=== PATIENT | female | born 1980 ===

== ENCOUNTER 2024-09-15 17:28 | Inpatient (IN) | payer SELFPAY ==
--- OUTSIDE RECORDS SUMMARY | 2024-09-15 17:38 | XMS_ITS | Clinical Summary ---
Author Organization [facility] it Address [address] [place] [address] Care Team Providers Care Movie Extra Name Role Phone Agustin Navarro MD Primary Care Provider Medical History Medical History Date Comments Catatonia schizophrenia (CMS /HCC V24, CMS/HCC V28) DX:Catatonia schizophrenia ( HCC) Family History Medical History Relation Name Comments No Known Problems Brother Hypertension Father Throat cancer Maternal Grandfather Coronary artery disease Mother sten t Hypertension Mother No Known Problems Sister Relation Name Status Comments Brother Alive Father Alive Maternal Grandfather Maternal Grandmother Mother Alive Paternal Grandfather Paternal Grandmother Sister Alive Social History Tobacco Use Types Packs/Day Years Used Date Smoking Tobacco: Never Smokeless Tobacco: Never Alcohol Use Standard Drinks/Week Comments No 0 (1 standard drink = 0.6 oz pur e alcohol) Comments Unknown Sex and Gender Information Value Date Recorded Sex Assigned at Not on file Legal Sex Female 3:11 AM EST Gender Identity Not on file Sexual Orientation Not on file Obstetrics History Last Filed Vital Signs Vital Sign Reading Time Taken Comments Blood Pressure 121/69 03/09/2024 11:19 AM EDT Pulse - - Temperature - - Respiratory Rate - - Oxygen Saturation - - Inhaled Oxygen Concentration - - Weight 50.5 kg (111 lb 6.4 oz) 03/09/2024 11:19 AM EDT Height 162.6 cm (5' 4 ) 03/09/2024 11:19 AM EDT Body Mass Index 19.12 03/09/2024 11:19 AM EDT Plan of Treatment Upcoming Encounters Date Type Department Care Team ([facility] st Contact Info) Description 11/11/2024 3:20 PM EDT Appointment Radiology Department - [place] [address] [place] [address] Health Maintenance Due Date Last Done Comments Breast Cancer Screening 1981 DTaP,Tdap,and Td Vaccines (1 - Tdap) 2000 Hepatitis B Vaccines (1 of 3 - 19+ 3-dose series) 2000 COVID-19 Vaccine ( - 2023-2 5 season) 2024 Depression Screening 04/12/2024 HIV Screening 04/12/2024 Hepatitis C Screening 04/12/2024 Social Influencers of Health Screening 04/12/2024 Influenza Vaccine (Season Ended) 2025 Cervical Cancer Screening: P ap Smear 03/09/2027 03/09/2024, 07/15/2017 HIB Vaccines Aged Out No longer eligi ble based on patient's age to complete this topic HPV Vaccines Aged Out No longer eligi ble based on patient's age to complete this topic Hepatitis A Vaccines Aged Out No long er eligible based on patient's age to complete this topic IPV Vaccines Aged Out No longer eligi ble based on patient's age to complete this topic MMR Vaccines Aged Out No longer eligi ble based on patient's age to complete this topic Meningococcal ACWY Vaccine Aged Out N o longer eligible based on patient's age to complete this topic Meningococcal B Vaccine Aged Out No l onger eligible based on patient's age to complete this topic Pneumococcal Vaccine: Pediatrics (0 to 5 Years) and At-Risk Patients (6 to 64 Years) Aged Out No longer eligible b ased on patient's age to complete this topic RSV Immunization Patients Under 20 months Aged Out No longer eligible b ased on patient's age to complete this topic Varicella Vaccines Aged Out No longer eligible based on patient's age to complete this topic Procedures Procedure Name Priority Date/Time Associated Diagnosis Comments PAP SMEAR Routine 03/09/2024 from Last 3 Months or Most Recently Relevant to Health Maintenance Results * Pap smear (03/09/2024) 03/09/2024 Narrative HISTORICAL TESTING LAB RESULTING AGENCY - 03/15/2024 6:30 AM EDT [id number] THINPREP PAP, IMAGED: NEGATIVE FOR SQUAMOUS INTRAEPITHELIAL LESION AND MALIGNANCY . REACTIVE CELLULAR CHANGES. LAURO STEEN M.D. , PATHOLOGIST (CASE ELECTRONICALLY SIGNED 03 14 2024) RESULT OF APTIMA HIGH RISK HPV ASSAY: HIGH RISK HPV: ??NEGATIVE (SEROTYPES 16,18,31,33,35,39,45,51,52,56,58,59,66,68) COMPLETED ON 2024-03-10 ADEQUACY: SATISFACTORY ENDOCERVICAL/TRANSFORMATION ZONE COMPONENT PRESENT. SOURCE: THINPREP PAP HPV ANY DX: ??REFLEX 16 AND 18, CERVICAL, IMAGED CLINICAL INFORMATION: Z01.419 ENCOUNTER FOR GYNECOLOGICAL EXAMINATION (GENERAL) (ROUTINE) WITHOUT ABNORMAL FINDINGS, PAP HX NEGATIVE, [Z12.4] Edwin Oropeza [facility] LAB CYTOLOGY ORDERABLES Final Result HISTORICAL TESTING LAB RESULTING AGENCY from Last 3 Months or Most Recently Relevant to Health Maintenance Care Teams Movie Extra Relationship Specialty Start Date End Date Agustin Navarro MD PCP - General Internal Medicine 06/22/17
--- NOTE | 2024-09-15 18:22 | PC.ADMIT ---
Pt presented to at 18:04 via stretcher from [facility] on a 12 b for the treatment of catatonia. Upon arrival on the unit pt has been with her eyes closed the entire time, occasionally nodding yes or no when asked a specific question. Per crisis assessment pt has a history of being medication non compliant, leading to frequent catatonic episodes. Pt has a psychiatric history of adjustment disorder, anxiety, depression, brief psychotic disorder with catatonia, anorexia nervosa restrictive type, and several prior inpatient psychiatric hospitalizations for the treatment of catatonia. When catatonic pt will go days without eating and has been previously admitted for starvation ketoacidosis. Pt has PMH of prior electrolyte derangements (hypokalemia, hyponatremia), chronic back pain, anemia, and vitamin D deficiency. Per crisis report pt does well on meds but struggles with compliance as she fears and does not want to be dependent on medications forever. After noncompliance, pt starts to become catatonic per crisis report. Utox (+) benzo (recent Ativan prescription), skin check completed with no significant findings.
[2024-09-15 18:24] VITALS: BMI 19.9
[2024-09-15 18:42] VITALS: BP 137/85; PULSE 101; RESP 16; TEMP 36.2; O2SAT 99
--- NOTE | 2024-09-15 20:11 | HO.PM.IMCN ---
History of Present Illness Data of Consult Service Date: 09/15/24 Requesting physician: Tammy Cooper Primary Care Provider: Unknown Physician HPI Reason for consult: medical H/P s/p transfer Patient is a 44-year-old Greek female with history of constipation, weight loss with reported hx of anorexia and recent ketoacidosis secondary to starvation with hypokalemia and hyponatremia, anemia, vitamin-D deficiency, chronic back pain presents as a transfer to [facility] able to participate in medical history and physical this evening. Patient states she has mild issues with constipation intermittently but denies straining. Patient reports unexplained weight loss with a current BMI of 19.9. Patient states she does have a good appetite. Pt did not bring up hx of eating disorder. Patient does not believe her weight loss is related to depression or mental health issues. After review of systems patient offers no specific complaints including chest pain, shortness of breath, nausea, vomiting, diarrhea. Patient denies any history of thyroid issues, eating disorders, heart disease, pulmonary issues, diabetes or history of cancer. Patient denies any history of medication allergies or food allergies. Patient denies any history of surgeries. Patient had 2 children normal deliveries. Review of Systems Review of Systems: Patient denies chest pain, shortness of breath at rest or with exertion, abdominal pain, diarrhea, lower leg pain. Patient denies any pain sources including back pain. Patient states dentition is in good repair. Patient reports a good appetite. [facility] Medical History (Updated 09/15/24 @ 20:21 by MARCELLA Schroeder) Hypokalemia Hyponatremia Ketoacidosis Cognitive capacity: Alert and orientated x3 Functional capacity: independent ambulation Date of last menstrual period: 08/30/24 Pertinent family history: Mother is 87 father is 88. Patient would only state that father is moving at a slower pace Social History Advance Directives: No Advance Directives Information Provided: No Ebola Risk: Travel/Contact With Anyone From Affected Area/s: No Has Patient Experienced Ebola Symptoms: No Meds Allergies Allergy/AdvReac Type Severity Reaction Status Date / Time No Known Allergies Allergy Verified 09/15/24 18:26 Active Medications: Current Medications Acetaminophen (Acetaminophen 325 Mg Tablet) 650 mg PO Q6H PRN PRN Reason: Headache/Pain, Scale 1-10 Al Hydroxide/Mg Hydroxide (Magnesium Hydrox/Alum Hydrox 30 Ml Oral.Susp) 30 ml PO Q6H PRN PRN Reason: Heartburn/Nausea Hydroxyzine HCl (Hydroxyzine Hcl 25 Mg Tablet) 25 mg PO Q6H PRN PRN Reason: mild anxiety Magnesium Hydroxide (Milk Of Magnesia 30 Ml Oral.Susp) 30 ml PO DAILY PRN PRN Reason: Constipation Nicotine Polacrilex (Nicotine Polacrilex 2 Mg Gum) 4 mg BUCCAL Q2H PRN PRN Reason: Nicotine Cravings Polyethylene Glycol (Polyethylene Glycol 3350 17 Gm Powd.Pack) 17 gm PO DAILY PRN PRN Reason: Constipation Senna (Sennosides 8.6 Mg Tablet) 17.2 mg PO BEDTIME PRN PRN Reason: Constipation Trazodone HCl (Trazodone Hcl 50 Mg Tablet) 50 mg PO BEDTIME MRX1 PRN PRN Reason: Insomnia Physical Exam Vital Signs and Narrative: Vital Signs: Last Vital Signs Temp 97.1 F 09/15/24 18:42 Pulse 101 H 09/15/24 18:42 Resp 16 09/15/24 18:42 BP 137/85 09/15/24 18:42 Pulse Ox 99 09/15/24 18:42 O2 Del Method Room Air 09/15/24 18:42 BMI result Body Mass Index 19.9 Alert and orientated X3, soft spoken with interview, able to fully participate Neuro: CN II-X11 intact, no deficits, visual acuity intact EYES: PERRLA, EOM intact ENT: hearing intact, no issues with swallowing, uvula midline, lips moist, nares patent no epistaxis Cardiac: S1 S2 tachy 100, no murmur, no JVD, no edema in Lower ext Pulmonary: lungs clear to auscultation B Abdominal: BS active in all 4 quadrants, no guarding, tenderness, rebounding, abdomen flat MSK: strength 5/5 upper and lower extremities : no CVA tenderness no bladder distension Extremities: no edema in lower extremities, PT and DP pulses palpable +2 Psych: mood mildly flat affect, judgement and insight fair Skin: no open wounds found Results ECG Attestation: I personally reviewed and interpreted this ECG as follows: (EKG requested) Prior ECG tracings: not available for review Assessment and Plan (1) Constipation: Qualifiers: Constipation type: slow transit constipation Qualified Code(s): K59.01 - Slow transit constipation Status: Acute (2) Anorexia: Status: Acute Plan Aranza is a 44-year-old Greek female with history of constipation, weight loss with reported hx of anorexia and recent ketoacidosis secondary to starvation with hypokalemia and hyponatremia, anemia, vitamin-D deficiency, chronic back pain transferred to [facility] unit for catatonia. Patient was able to participate in history and physical today. Limited history provided. Patient denied any current issues with chronic back pain or pain in general. Tachycardia -EKG requested, unable to locate an EKG from prior institution -monitor closely Constipation -senna at HS provided -MiraLax p.r.n. -can consider Metamucil if needed Anorexia nervosa with a BMI of 19.9 -labs pending for the a.m.m monitor for ketoacidosis -nutritional consult as needed -nutritional supplements as tolerated -monitor weight closely Vitamin-D deficiency -vitamin-D level ordered, supplementation if indicated Hospitalist will sign off at this time. We appreciate this consultation! Please reconsult for any abnormal labs, abnormal ECG or other medical concerns as needed.
[2024-09-16 07:10] VITALS: BP 118/64; PULSE 68; RESP 14; TEMP 36.4; O2SAT 99
[2024-09-16] MEDS: LORazepam 1 MG TABLET PO ×3 (10:32→21:27)
--- NOTE | 2024-09-16 14:27 | P.HPPS_ITS ---
[facility] Date of Service: 09/16/24 Chief Complaint: Catatonia Sources of Information: patient interviewed, chart reviewed and crisis/core team assessment reviewed HPI Subjective Notes: Maria Warning and Section 12B Narrative: Patient is a 44-year-old female with history brief psychotic disorder with catatonia, MDD, and anorexia nervosa who presented to ER due to abdominal pain, decreased p.o. intake and decreased movement and verbal responses at home secondary to medication noncompliance. Per crisis report, patient's states she her medications and sees her psychiatrist every 2 weeks. Denies any substance use tox negative. Patient was alert and oriented x3. She reports poor appetite but does not believe that this is particularly concerning; her appetite is starting to improve. She denies any anxiety or depression.denies paranoia. denies SI/HI/VH/AH. Denies SIB. Patient provided minimal responses throughout assessment. Patient's reports for the last 10 days patient appears to have a brain block and wonders if this is from her recent restrictive eating over the last week. He reports patient generally does well when she takes her medications (Remeron, Risperidal, Ativan), but becomes fearful that she will become dependent on them. This leads to recurrent episodes of catatonia. History of hospitalization in April 2023 at [facility] for similar presentation. During admission assessment, patient presents alert and oriented x3. Calm and cooperative. Guarded. Relay Tester Helper services utilized due to patient primarily Syriac speaking. Patient initially responding to questions with nodding or shaking head; patient then began to answer questions but was very soft-spoken. Patient reports feeling depressed but she does not know why. She states restricting herself from eating for the past few days and has been doing this since she was a teenager. Patient reports her eating and drinking have improved since being in the hospital. She reports she is willing to take her medications while inpatient. Denies SI/HI/VH. Appears thought blocking at times; when asked about auditory hallucinations patient nodded her head yes, but would not elaborate on what she was hearing. Past Psychiatric History: One prior psychiatric hospitalization at [facility] in April 2023. denies hx of SA/SIB. Prescriber through [facility]. does not have outpatient therapist. Medical Evaluation Reviewed: Yes [facility] Medical History (Updated 09/16/24 @ 14:48 by Lin Khabir, [employer]) Hypokalemia Hyponatremia Ketoacidosis Family History: denies Social History: Lives with . 2 kids (16 and 17 y/o). Works at [employer] at times. Substance History: denies Trauma History: denies Diagnostics Vital Signs (24Hr): Vital Signs - 24 hr 09/15/24 18:42 09/16/24 07:10 Temperature 97.1 F 97.5 F Pulse Rate 101 H 68 Respiratory Rate 16 14 Blood Pressure 137/85 118/64 Pulse Oximetry 99 99 Oxygen Delivery Method Room Air Room Air BMI result Body Mass Index 19.9 Meds/Allergies Meds Home Medications ?Medication ?Instructions ?Recorded ?Confirmed ?Type No Known Home Meds 09/16/24 09/16/24 History Allergies Allergies Allergy/AdvReac Type Severity Reaction Status Date / Time No Known Allergies Allergy Verified 09/15/24 18:26 Mental Status Exam Mental Status Exam Narrative: Pt is alert and oriented; behavior is cooperative, and calm, guarded; dressed in casual attire; mood is described as depressed ; eye contact poor; Speech is normal rate, low volume and not pressured; thought process is organized; Thought content is on tx; denies SI/HI/VH. pt reports auditory hallucinations but did not go into detail. Assessment & Plan Assessment & Plan (1) Brief psychotic disorder with catatonia: Status: Acute Code(s): F23 - Brief psychotic disorder; F06.1 - Catatonic disorder due to known physiological condition (2) Anorexia: Status: Acute Code(s): R63.0 - Anorexia Plan Patient is a 44-year-old female with history brief psychotic disorder with catatonia, MDD, and anorexia nervosa who presented to ER due to abdominal pain, decreased p.o. intake and decreased movement and verbal responses at home secondary to medication noncompliance. Plan: 12B 15 minute safety checks Start: Ativan 1 mg PO TID Hold Risperdal and Remeron until catatonia improves Obtain collateral Dietitian consult Encourage groups Encourage medication compliance Discharge planning Patient educated on: diagnosis and medication risk/benefits Reason for continued inpatient stay Substantial Risk for: med/psych decompensation Statement Statement: I have reviewed the history and physical and performed a pertinent examination on my patient. No changes have occurred unless specified. If the History and Physical was not performed prior to admission, the Hospitalist's service will be consulted for completing the admission physical. Time Spent With Patient Time: Total time managing care of this patient today _60___ minutes.
[2024-09-16 14:38] LABS: MANUAL DIFF FLAG NO
[2024-09-16 14:46] LABS: Basophils Percent Auto 0.7 % (0-2); Eosinophils Absolute Auto 0.1 X10*3/uL (0.0-0.4); Eosinophils Percent Auto 3.1 % (0-4); Hemoglobin 13.9 g/dl (12.0-16.0); Imm Gran Abs Auto 0.05 X10*3/uL (0.00-0.03); Imm Gran Pct Auto 1.1 % (0.0-0.4); Lymphocytes Absolute Auto 1.5 X10*3/uL (1.2-4.9); Lymphocytes Percent Auto 33.8 % (20-40); Mean Corpuscular HGB Conc 34.8 g/dl (31.0-35.0); Mean Corpuscular Hemoglobin 31.4 pg (27.0-33.0); Mean Corpuscular Volume 90.3 fL (80.0-98.0); Monocytes Absolute Auto 0.4 X10*3/uL (0.1-1.2); Monocytes Percent Auto 7.9 % (2-11); Neutrophils Absolute Auto 2.4 x10*3/uL (2.0-8.3); Neutrophils Percent Auto 53.4 % (45-73); Platelet Count 199 X10*3/uL (160-400); Red Blood Count 4.43 X10*6/uL (4.20-5.50); Red Cell Distribution Width 12.5 % (11.0-16.0); White Blood Count 4.5 X10*3/uL (4.8-10.8)
[2024-09-16 14:50] LABS: Estimated Average Glucose 97 mg/dL; Hemoglobin A1C 113.2596 umol/L; Total Hemoglobin (HGBA1C) 3663.7958 umol/L
[2024-09-16 14:56] LABS: Alanine Aminotransferase 11 U/L (0-31); Albumin Level 3.7 g/dL (3.5-5.0); Alkaline Phosphatase 47 U/L (39-117); Anion Gap 11 (12-20); Aspartate Amino Transferase 19 U/L (5-31); Bilirubin Total 0.5 mg/dL (0.0-1.0); Blood Urea Nitrogen 13 mg/dL (9-16); Calcium 8.7 mg/dL (8.4-10.2); Carbon Dioxide 24 mmol/L (22-29); Chloride 107 mmol/L (96-108); Creatinine Clr Calc Pharmacy 80.2; Estimated Glomerular Filt Rate > 60; Glucose Random 128 mg/dL (60-115); Potassium 3.8 mmol/L (3.3-5.1); Sodium 138 mmol/L (135-145); Total Protein 6.7 g/dL (6.5-8.0)
[2024-09-16 15:02] LABS: Cholesterol 146 mg/dL (<200); HDL Cholesterol 43 mg/dL (>40); LDL Cholesterol Calculated 92 mg/dL (<100); Magnesium 2.2 mg/dL (1.6-2.6); Triglycerides 56 mg/dL (<150)
[2024-09-16 15:19] LABS: Free T4 (Free Thyroxine) 1.18 ng/dL (0.71-1.85); Thyroid Stimulating Hormone 0.58 uIU/mL (0.32-4.0)
--- NOTE | 2024-09-16 15:53 | MHC.CLN ---
NUTRITION CONSULT FOR ANOREXIA. PATIENT WITH DX ANOREXIA NERVOSA. COMPLETED MENUS FOR NEXT DAY. VERY POOR PO TODAY. HAD A LARGE AMOUNT OF FOOD ORDERED BUT NOT EATEN, PATIENT WITH SOFT VOICE AND DIFFICULT TO UNDERSTAND. SELECTS VEGETARIAN OPTIONS. RD WILL FOLLOW UP NEXT WEEK.
[2024-09-16 18:31] LABS: Folate 13.3 ng/mL (> or = 4.0); Vitamin B12 > 2000 pg/mL (200-900)
[2024-09-16 20:00] VITALS: RESP 16
[2024-09-17 08:00] VITALS: BP 110/67; PULSE 70; RESP 18; TEMP 36.4; O2SAT 99
[2024-09-17] MEDS: LORazepam 1 MG TABLET PO ×3 (08:48→21:44)
--- NOTE | 2024-09-17 19:33 | P.PNPSI_ITS ---
Subjective Subjective Date of Service: 09/17/24 Reason For Visit: Catatonia Interim History: i just want to go home. PMR, delayed responses. no other complaints or requests. per staff, unclear if cheeking, requesting mouth checks. minimal verbalization. slept 9 hours. 12b, catatonic. Mental Status Exam Mental Status Exam Narrative: Pt is alert and oriented; behavior is cooperative, and calm, guarded; dressed in casual attire; mood is not assessed; eye contact fair; Speech is slowed, low volume and not pressured; thought process is organized; Thought content is on discharge; no SI/HI/AVH expressed. Diagnostics Vital Signs (24Hr): Vital Signs - 24 hr 09/16/24 20:00 09/17/24 08:00 Temperature 97.6 F Pulse Rate 70 Respiratory Rate 16 18 Blood Pressure 110/67 Pulse Oximetry 99 Oxygen Delivery Method Room Air BMI result Body Mass Index 19.9 Labs 09/16/24 14:34 09/16/24 14:34 Labs: Laboratory Results - last 48 hr 09/16/24 14:34 WBC 4.5 L RBC 4.43 Hgb 13.9 Hct 40.0 MCV 90.3 MCH 31.4 MCHC 34.8 RDW 12.5 Plt Count 199 MPV 10.0 Immature Gran % (Auto) 1.1 H Neut % (Auto) 53.4 Lymph % (Auto) 33.8 [place] % (Auto) 7.9 Eos % (Auto) 3.1 Baso % (Auto) 0.7 Lymph # (Auto) 1.5 [place] # (Auto) 0.4 Eos # (Auto) 0.1 Baso # (Auto) 0.0 Abs Immat Gran (auto) 0.05 H Absolute Neuts (auto) 2.4 Absolute Nucleated RBC 0.000 Nucleated RBC % (auto) 0.0 Sodium 138 Potassium 3.8 Chloride 107 Carbon Dioxide 24 Anion Gap 11 L BUN 13 Creatinine 0.65 Estim Creat Clear Calc 80.2 Estimated GFR > 60 Random Glucose 128 H Estimat Average Glucose 97 Hemoglobin A1c % 5.0 Calcium 8.7 Magnesium 2.2 Total Bilirubin 0.5 AST 19 ALT 11 Alkaline Phosphatase 47 Total Protein 6.7 Albumin 3.7 Triglycerides 56 Cholesterol 146 LDL Cholesterol, Calc 92 HDL Cholesterol 43 Vitamin B12 > 2000 H Folate 13.3 TSH 0.58 Free T4 1.18 Medications Medications Current Medications Acetaminophen (Acetaminophen 325 Mg Tablet) 650 mg PO Q6H PRN PRN Reason: Headache/Pain, Scale 1-10 Al Hydroxide/Mg Hydroxide (Magnesium Hydrox/Alum Hydrox 30 Ml Oral.Susp) 30 ml PO Q6H PRN PRN Reason: Heartburn/Nausea Hydroxyzine HCl (Hydroxyzine Hcl 25 Mg Tablet) 25 mg PO Q6H PRN PRN Reason: mild anxiety Lorazepam (Lorazepam 1 Mg Tablet) 1 mg PO TID DUGLAS Last Admin: 09/17/24 15:43 Dose: 1 mg Magnesium Hydroxide (Milk Of Magnesia 30 Ml Oral.Susp) 30 ml PO DAILY PRN PRN Reason: Constipation Nicotine Polacrilex (Nicotine Polacrilex 2 Mg Gum) 4 mg BUCCAL Q2H PRN PRN Reason: Nicotine Cravings Polyethylene Glycol (Polyethylene Glycol 3350 17 Gm Powd.Pack) 17 gm PO DAILY PRN PRN Reason: Constipation Senna (Sennosides 8.6 Mg Tablet) 17.2 mg PO BEDTIME PRN PRN Reason: Constipation Trazodone HCl (Trazodone Hcl 50 Mg Tablet) 50 mg PO BEDTIME MRX1 PRN PRN Reason: Insomnia Allergies Allergies Allergy/AdvReac Type Severity Reaction Status Date / Time No Known Allergies Allergy Verified 09/15/24 18:26 Assessment & Plan Assessment & Plan (1) Brief psychotic disorder with catatonia: Status: Acute Code(s): F23 - Brief psychotic disorder; F06.1 - Catatonic disorder due to known physiological condition (2) Anorexia: Status: Acute Code(s): R63.0 - Anorexia Plan Patient is a 44-year-old female with history brief psychotic disorder with catatonia, MDD, and anorexia nervosa who presented to ER due to abdominal pain, decreased p.o. intake and decreased movement and verbal responses at home secondary to medication noncompliance. Plan: 12B 15 minute safety checks Start: Ativan 1 mg PO TID Hold Risperdal and Remeron until catatonia improves Obtain collateral Dietitian consult Encourage groups Encourage medication compliance Discharge planning 09/17: continue scheduled ativan, add mouth checks. PMR, increased MANUELA. observe for decreased reaction time and more flexible and spontaneous affect. Reason for continued inpatient stay Substantial Risk for: inability to function Time Spent With Patient Time: Total time managing care of this patient today ____ minutes.
[2024-09-17 20:00] VITALS: BP 123/78; PULSE 104; RESP 14; TEMP 36.1; O2SAT 100
[2024-09-18] MEDS: LORazepam 1 MG TABLET PO ×2 (08:54→15:02)
[2024-09-18 08:58] VITALS: BP 122/77; PULSE 65; RESP 16; TEMP 36.6; O2SAT 100
--- NOTE | 2024-09-18 16:08 | P.PNPSI_ITS ---
Subjective Subjective Date of Service: 09/18/24 Reason For Visit: Catatonia Interim History: no change in presentation. stiff, terse. asking when she will go home. reports she slept well, is eating well. per staff, slept 9+ hours. denies anx/dep. had a visitor. eating 105 meals. MANUELA. cooperative with mouth checks. Mental Status Exam Mental Status Exam Narrative: Pt is alert and oriented; behavior is cooperative, and calm, guarded; dressed in casual attire; mood is not assessed; eye contact fair; Speech is slowed, low volume and not pressured; thought process is organized; Thought content is on discharge; no SI/HI/AVH expressed. Diagnostics Vital Signs (24Hr): Vital Signs - 24 hr 09/17/24 20:00 09/18/24 08:58 Temperature 96.9 F 97.8 F Pulse Rate 104 H 65 Respiratory Rate 14 16 Blood Pressure 123/78 122/77 Pulse Oximetry 100 100 Oxygen Delivery Method Room Air Room Air BMI result Body Mass Index 19.9 Labs 09/16/24 14:34 09/16/24 14:34 Labs: Laboratory Results - last 48 hr 09/16/24 14:34 Vitamin B12 > 2000 H Folate 13.3 Medications Medications Current Medications Acetaminophen (Acetaminophen 325 Mg Tablet) 650 mg PO Q6H PRN PRN Reason: Headache/Pain, Scale 1-10 Al Hydroxide/Mg Hydroxide (Magnesium Hydrox/Alum Hydrox 30 Ml Oral.Susp) 30 ml PO Q6H PRN PRN Reason: Heartburn/Nausea Hydroxyzine HCl (Hydroxyzine Hcl 25 Mg Tablet) 25 mg PO Q6H PRN PRN Reason: mild anxiety Lorazepam (Lorazepam 1 Mg Tablet) 1 mg PO TID [facility] Last Admin: 09/18/24 15:02 Dose: 1 mg Magnesium Hydroxide (Milk Of Magnesia 30 Ml Oral.Susp) 30 ml PO DAILY PRN PRN Reason: Constipation Nicotine Polacrilex (Nicotine Polacrilex 2 Mg Gum) 4 mg BUCCAL Q2H PRN PRN Reason: Nicotine Cravings Polyethylene Glycol (Polyethylene Glycol 3350 17 Gm Powd.Pack) 17 gm PO DAILY PRN PRN Reason: Constipation Senna (Sennosides 8.6 Mg Tablet) 17.2 mg PO BEDTIME PRN PRN Reason: Constipation Trazodone HCl (Trazodone Hcl 50 Mg Tablet) 50 mg PO BEDTIME MRX1 PRN PRN Reason: Insomnia Allergies Allergies Allergy/AdvReac Type Severity Reaction Status Date / Time No Known Allergies Allergy Verified 09/15/24 18:26 Assessment & Plan Assessment & Plan (1) Brief psychotic disorder with catatonia: Status: Acute Code(s): F23 - Brief psychotic disorder; F06.1 - Catatonic disorder due to known physiological condition (2) Anorexia: Status: Acute Code(s): R63.0 - Anorexia Plan Patient is a 44-year-old female with history brief psychotic disorder with catatonia, MDD, and anorexia nervosa who presented to ER due to abdominal pain, decreased p.o. intake and decreased movement and verbal responses at home secondary to medication noncompliance. Plan: 12B 15 minute safety checks Start: Ativan 1 mg PO TID Hold Risperdal and Remeron until catatonia improves Obtain collateral Dietitian consult Encourage groups Encourage medication compliance Discharge planning 5/3: continue scheduled ativan, add mouth checks. PMR, increased MANUELA. observe for decreased reaction time and more flexible and spontaneous affect. 5/4: no change in presentation. compliant with mouth checks. continue current mgmt. asking when she can go home. Reason for continued inpatient stay Substantial Risk for: inability to function Time Spent With Patient Time: Total time managing care of this patient today ____ minutes.
[2024-09-19 07:41] VITALS: BP 115/71; PULSE 60; RESP 16; TEMP 36.8; O2SAT 99
[2024-09-19] MEDS: LORazepam 1 MG TABLET PO ×2 (08:07→16:05)
--- NOTE | 2024-09-19 11:07 | HO.PSYCHPN ---
Subjective Subjective Date of Service: 09/19/24 Reason For Visit: Catatonia Subjective Notes: Section 12B Interim History: Patient reports feeling good today; she is requesting to be discharged home. Guarded. Soft spoken. per nursing, eating and slept 10 hours. Patient reports she plans on continuing to be medication compliant and following up with outpatient providers. denies SI/HI/VH/AH. 12B up on 09/20/24. Medication Compliance: Yes Side effects from medications: No Attending Groups: No Mental Status Exam Mental Status Exam Narrative: Pt is alert and oriented; behavior is cooperative and calm; dressed in casual attire; mood is described as good ; eye contact appropriate; Speech is normal rate, low volume and not pressured; thought process is organized; Thought content is on discharge; denies SI/HI/VH/AH. Diagnostics Vital Signs (24Hr): Vital Signs - 24 hr 09/19/24 07:41 Temperature 98.2 F Pulse Rate 60 Respiratory Rate 16 Blood Pressure 115/71 Pulse Oximetry 99 Oxygen Delivery Method Room Air BMI result Body Mass Index 19.9 Labs 09/16/24 14:34 09/16/24 14:34 Medications Medications Current Medications Acetaminophen (Acetaminophen 325 Mg Tablet) 650 mg PO Q6H PRN PRN Reason: Headache/Pain, Scale 1-10 Al Hydroxide/Mg Hydroxide (Magnesium Hydrox/Alum Hydrox 30 Ml Oral.Susp) 30 ml PO Q6H PRN PRN Reason: Heartburn/Nausea Hydroxyzine HCl (Hydroxyzine Hcl 25 Mg Tablet) 25 mg PO Q6H PRN PRN Reason: mild anxiety Lorazepam (Lorazepam 1 Mg Tablet) 1 mg PO TID DUGLAS Last Admin: 09/19/24 08:07 Dose: 1 mg Magnesium Hydroxide (Milk Of Magnesia 30 Ml Oral.Susp) 30 ml PO DAILY PRN PRN Reason: Constipation Nicotine Polacrilex (Nicotine Polacrilex 2 Mg Gum) 4 mg BUCCAL Q2H PRN PRN Reason: Nicotine Cravings Polyethylene Glycol (Polyethylene Glycol 3350 17 Gm Powd.Pack) 17 gm PO DAILY PRN PRN Reason: Constipation Senna (Sennosides 8.6 Mg Tablet) 17.2 mg PO BEDTIME PRN PRN Reason: Constipation Trazodone HCl (Trazodone Hcl 50 Mg Tablet) 50 mg PO BEDTIME MRX1 PRN PRN Reason: Insomnia Allergies Allergies Allergy/AdvReac Type Severity Reaction Status Date / Time No Known Allergies Allergy Verified 09/15/24 18:26 Assessment & Plan Assessment & Plan (1) Brief psychotic disorder with catatonia: Status: Acute Code(s): F23 - Brief psychotic disorder; F06.1 - Catatonic disorder due to known physiological condition (2) Anorexia: Status: Acute Code(s): R63.0 - Anorexia Plan Patient is a 44-year-old female with history brief psychotic disorder with catatonia, MDD, and anorexia nervosa who presented to ER due to abdominal pain, decreased p.o. intake and decreased movement and verbal responses at home secondary to medication noncompliance. Plan: 12B 15 minute safety checks Start: Ativan 1 mg PO TID Hold Risperdal and Remeron until catatonia improves Obtain collateral Dietitian consult Encourage groups Encourage medication compliance Discharge planning 09/17: continue scheduled ativan, add mouth checks. PMR, increased MANUELA. observe for decreased reaction time and more flexible and spontaneous affect. 09/18: no change in presentation. compliant with mouth checks. continue current mgmt. asking when she can go home. 09/19: Patient reports feeling good today; she is requesting to be discharged home. Guarded. Soft spoken. per nursing, eating and slept 10 hours. Patient reports she plans on continuing to be medication compliant and following up with outpatient providers. denies SI/HI/VH/AH. 12B up on 09/20/24. Social work spoke with , who reports pt has improved since admission. Plan to discharge home tomorrow. Patient educated on: diagnosis and medication risk/benefits Reason for continued inpatient stay Substantial Risk for: med/psych decompensation Time Spent With Patient Time: Total time managing care of this patient today _20___ minutes.
--- NOTE | 2024-09-19 15:23 | MHC.CLN ---
F/U PATIENT APPEARS TO BE EATING WELL. ATE 75-100% AT BREAKFAST AND LUNCH TODAY. NO NEW NUTRITION INTERVENTIONS.
[2024-09-19 20:15] VITALS: RESP 16
[2024-09-20 07:15] VITALS: BP 115/66; PULSE 64; RESP 16; TEMP 36.4; O2SAT 99
[2024-09-20] MEDS: LORazepam 1 MG TABLET PO (08:44)
--- NOTE | 2024-09-20 09:30 | PM.PSYDC ---
DS: Providers Provider Date of Service: 09/20/24 Date of admission: 09/15/24 17:28 Date of discharge: 09/20/24 Primary care physician: Unknown Physician Admitting clinician: Lin Lamar Attending physician on admission: Polo Montejo Consults: 09/15/24 18:28 Consult to Hospitalist Routine Comment: Consulting Provider: [facility] Hospitalists Reason For Exam: Transfer pt Attending physician on discharge: Polo Montejo Discharging clinician: Lin Lamar DS: Diagnosis Discharge Diagnosis (1) Brief psychotic disorder with catatonia: Status: Acute (2) Anorexia: Status: Acute DS: Medications Discharge Medications Home Medications: Previous Rx's ?Medication ?Instructions ?Recorded lorazepam 1 mg tablet 1 mg PO BID 7 days #14 tabs 09/19/24 Mental Status Exam Mental Status Exam Narrative: Pt is alert and oriented; behavior is cooperative and calm; dressed in casual attire; mood is described as good ; eye contact appropriate; Speech is normal rate, low volume and not pressured; thought process is organized; Thought content is on discharge; denies SI/HI/VH/AH. Data Data Completed and Pending Completed studies during hospitalization [Text1]: 09/16/24 14:34 WBC 4.5 L RBC 4.43 Hgb 13.9 Hct 40.0 MCV 90.3 MCH 31.4 MCHC 34.8 RDW 12.5 Plt Count 199 MPV 10.0 Immature Gran % (Auto) 1.1 H Neut % (Auto) 53.4 Lymph % (Auto) 33.8 [place] % (Auto) 7.9 Eos % (Auto) 3.1 Baso % (Auto) 0.7 Lymph # (Auto) 1.5 [place] # (Auto) 0.4 Eos # (Auto) 0.1 Baso # (Auto) 0.0 Abs Immat Gran (auto) 0.05 H Absolute Neuts (auto) 2.4 Absolute Nucleated RBC 0.000 Nucleated RBC % (auto) 0.0 Sodium 138 Potassium 3.8 Chloride 107 Carbon Dioxide 24 Anion Gap 11 L BUN 13 Creatinine 0.65 Estim Creat Clear Calc 80.2 Estimated GFR > 60 Random Glucose 128 H Estimat Average Glucose 97 Hemoglobin A1c % 5.0 Calcium 8.7 Magnesium 2.2 Total Bilirubin 0.5 AST 19 ALT 11 Alkaline Phosphatase 47 Total Protein 6.7 Albumin 3.7 Triglycerides 56 Cholesterol 146 LDL Cholesterol, Calc 92 HDL Cholesterol 43 Vitamin B12 > 2000 H 25-OH Vitamin D Total Pending 25-Hydroxy Vitamin D2 Pending 25-Hydroxy Vitamin D3 Pending Folate 13.3 TSH 0.58 Free T4 1.18 DS: Summary Hospital Course Hospital Course: Patient is a 44-year-old female with history brief psychotic disorder with catatonia, MDD, and anorexia nervosa who presented to ER due to abdominal pain, decreased p.o. intake and decreased movement and verbal responses at home secondary to medication noncompliance. Per crisis report, patient's states she her medications and sees her psychiatrist every 2 weeks. Denies any substance use tox negative. Patient was alert and oriented x3. She reports poor appetite but does not believe that this is particularly concerning; her appetite is starting to improve. She denies any anxiety or depression.denies paranoia. denies SI/HI/VH/AH. Denies SIB. Patient provided minimal responses throughout assessment. Patient's reports for the last 10 days patient appears to have a brain block and wonders if this is from her recent restrictive eating over the last week. He reports patient generally does well when she takes her medications (Remeron, Risperidal, Ativan), but becomes fearful that she will become dependent on them. This leads to recurrent episodes of catatonia. History of hospitalization in April 2023 at [facility] for similar presentation. During admission assessment, patient presents alert and oriented x3. Calm and cooperative. Guarded. Category Director services utilized due to patient primarily Senegalese speaking. Patient initially responding to questions with nodding or shaking head; patient then began to answer questions but was very soft-spoken. Patient reports feeling depressed but she does not know why. She states restricting herself from eating for the past few days and has been doing this since she was a teenager. Patient reports her eating and drinking have improved since being in the hospital. She reports she is willing to take her medications while inpatient. Denies SI/HI/VH. Appears thought blocking at times; when asked about auditory hallucinations patient nodded her head yes, but would not elaborate on what she was hearing. Plan: 12B 15 minute safety checks Start: Ativan 1 mg PO TID Hold Risperdal and Remeron until catatonia improves Obtain collateral Dietitian consult Encourage groups Encourage medication compliance Discharge planning continue scheduled ativan, add mouth checks. PMR, increased MANUELA. observe for decreased reaction time and more flexible and spontaneous affect. no change in presentation. compliant with mouth checks. continue current mgmt. asking when she can go home. Patient reports feeling good today; she is requesting to be discharged home. Guarded. Soft spoken. per nursing, eating and slept 10 hours. Patient reports she plans on continuing to be medication compliant and following up with outpatient providers. denies SI/HI/VH/AH. 12B up on 09/20/24. Social work spoke with , who reports pt has improved since admission. Plan to discharge home tomorrow. Pt continues to report feeling good and ready for discharge. denies SI/HI/VH/AH. Nursing reviewed discharge instructions with patients and patient. Pt plans on following up with her outpatient providers. Status at Discharge Cognitive/behavioral status at discharge: Patient has insight and demonstrates good judgment in terms of wanting to pursue treatment. Patient has a safety plan that includes presenting to the closest ER or calling 911 if feeling unsafe. Functional status at discharge: independent ambulation Overall status at discharge: patient is back to baseline Time Spent with Patient Time attestation: Total time managing care of this patient today _20___ minutes. Time spent: Less than 30 minutes Discharge Plan Discharge Anticipated Discharge Date/Time: 09/20/24 10:30 Patient Disposition: Home, Self-Care Discharge Diagnosis: Brief psychotic d/o with catatonia, anorexia Referrals: Psych Prescriber: Kajal Orr ([facility]) [Other] - 1 Week (*Please follow up with your prescriber regarding the next scheduled appointment. ) [facility] [Provider Group] - 1 Week (09-20-24 [facility] was added to patients chart. Please call [phone] to schedule a follow up appt within 7-10 days of discharge.) Discharge Medications: New lorazepam 1 mg Tablet 1 mg PO BID 7 Days Qty: 14 0RF Discharge Orders: Discharge Order (Routine); Ordered 09/20/24 Ordered By: Lin Lamar Diet: Regular diet Activity on Discharge: As tolerated Stand Alone Forms: Patient Portal Discharge page, Community Support Print Language: Yoruba Care Plan Goals: Maintain mood and safe behaviors Take medications as prescribed Practice coping skills Continue with outpatient providers and reach out to them as needed Health Concerns: Mood stability and behaviors Plan of Treatment: Follow up with your PCP, psychiatric provider and other outpatient providers regarding above concerns Take medications as prescribed Assessment: Patient has insight and demonstrates good judgment in terms of wanting to pursue treatment. Patient has a safety plan that includes presenting to the closest ER or calling 911 if feeling unsafe. Discharge Date/Time: 09/20/24 11:01
[2024-09-21 14:48] LABS: Vitamin D 25-OH, D2 12 ng/mL; Vitamin D 25-OH, D3 10 ng/mL; Vitamin D 25-OH, Total 22 ng/mL (30-100)
== END 2024-09-20 11:01 | disposition home or self-care (01) | DRG 885 ==
PROVIDERS: Clinical Nurse Specialist Psychiatric/Mental Health, Adult; Nurse Practitioner Family; Admitting Provider Psychiatry & Neurology Psychiatry; Responsible Provider Psychiatry & Neurology Psychiatry; Visit Provider Psychiatry & Neurology Psychiatry
DX: F23 Brief psychotic disorder (principal); F50.00 Anorexia nervosa, unspecified; Z68.1 Body mass index [BMI] 19.9 or less, adult; F06.1 Catatonic disorder due to known physiological condition; K59.01 Slow transit constipation; E55.9 Vitamin D deficiency, unspecified
CPT/HCPCS: 36415; 80053; 80061; 82306; 82607; 82746; 83036; 83735; 84439; 84443; 85025

== ENCOUNTER → 2024-09-15 17:28 | Outpatient (BNV) | payer MEDICAID, SELFPAY | PROVIDERS: Admitting Provider Psychiatry & Neurology Psychiatry; Visit Provider Nurse Practitioner Family | DX: K59.01 Slow transit constipation (principal); R63.0 Anorexia | CPT/HCPCS: 99222 ==

== ENCOUNTER → 2024-09-15 17:28 | Outpatient (BNV) | payer SELFPAY | PROVIDERS: Admitting Provider Psychiatry & Neurology Psychiatry; Responsible Provider Psychiatry & Neurology Psychiatry; Visit Provider Registered Nurse | DX: F23 Brief psychotic disorder (principal); F06.1 Catatonic disorder due to known physiological condition; R63.0 Anorexia | CPT/HCPCS: 90792; 99231; 99238 ==